=== PATIENT | female | born 1995 | race Caucasian/White ===

== ENCOUNTER 2021-02-16 20:23 | Emergency (ER) | payer OTHER | END 2021-02-16 22:47 | disposition home or self-care (01) | LOC: FER 20:23 | DX: S60.052A Contusion of left little finger without damage to nail, initial encounter (principal); W23.1XXA Caught, crushed, jammed, or pinched between stationary objects, initial encounter; Y92.89 Other specified places as the place of occurrence of the external cause; Y99.0 Civilian activity done for income or pay | CPT/HCPCS: 73140 ==